=== PATIENT | male | born 1940 | race Caucasian/White ===

== ENCOUNTER 2016-06-09 14:31 | Inpatient (IN) | payer MEDICARE, BC ==
[~2016-06-09] VITALS: Ht 177.8 cm; Wt 88.5 kg
[2016-06-09] MEDS ORDERED: ADD HEIGHT/WEIGHT/ALLERGY INFO XX SCH (15:36)
[2016-06-09 15:44] VITALS: Ht 177.8 cm; Wt 88.5 kg
[2016-06-09 15:45] VITALS: BP_SYST 170; BP_SYST 178; RESP 18; TEMP 98.1
[2016-06-09] MEDS ORDERED: hePARIN 20,000 UNITS in DEXTROSE 5% 500 ML IV SCH (16:10)
[2016-06-09] MEDS ORDERED: HEPARIN 5,000 UNITS/ML **DVT/PE IV PRN (17:15)
[2016-06-09] MEDS: hePARIN in D5W (40 UNITS/ML) 500 ML IV SCH (18:33)
[2016-06-09 19:37] VITALS: BP_SYST 160; RESP 18; TEMP 98.3
[2016-06-09 23:10] VITALS: BP_SYST 170; RESP 18; TEMP 98.2
[2016-06-10 04:43] VITALS: BP_SYST 166; RESP 18; TEMP 97.4
[2016-06-10] MEDS ORDERED: MISSING DOSE XX ONE ×2 (06:55→19:05)
[2016-06-10 07:34] VITALS: BP_SYST 151; RESP 20; TEMP 97.9
[2016-06-10] MEDS: hePARIN in D5W (40 UNITS/ML) 500 ML IV SCH ×2 (07:41→22:37)
[2016-06-10] MEDS: amLODIPine 5 MG TAB PO SCH (09:26)
[2016-06-10 10:51] VITALS: BP_SYST 151; RESP 18; TEMP 97.9
[2016-06-10] MEDS ORDERED: ACETAMINOPHEN 325 MG TAB PO PRN (12:00)
[2016-06-10 16:07] VITALS: BP_SYST 165; RESP 20; TEMP 98.1
[2016-06-10 19:44] VITALS: BP_SYST 145; RESP 18; TEMP 97.9
[2016-06-10 23:05] VITALS: BP_SYST 152; TEMP 98.2
[2016-06-11 04:20] VITALS: BP_SYST 159; RESP 18; TEMP 97.7
[2016-06-11 07:11] VITALS: BP_SYST 166; RESP 18; TEMP 97.7
[2016-06-11] MEDS: amLODIPine 5 MG TAB PO SCH (08:00)
[2016-06-11] MEDS ORDERED: APIXABAN 5 MG TAB PO ONE (10:00)
[2016-06-11 10:40] VITALS: BP_SYST 149; RESP 18; TEMP 98.3
[2016-06-11 10:53] VITALS: BP_SYST 166; RESP 18; TEMP 97.7
[2016-06-11 10:58] VITALS: BP_SYST 166; RESP 18; TEMP 97.7
== END 2016-06-11 11:36 | disposition home or self-care (01) | DRG 301 ==
LOC: ENRESERVTM → ENRESERVDT → 4NT 15:08 → ENPENDDIS 15:08
PROVIDERS: ADMIT Internal Medicine; ATTEND Internal Medicine
DX: I82.432 Acute embolism and thrombosis of left popliteal vein (principal); I82.412 Acute embolism and thrombosis of left femoral vein; K21.9 Gastro-esophageal reflux disease without esophagitis; E78.5 Hyperlipidemia, unspecified; I10 Essential (primary) hypertension; E55.9 Vitamin D deficiency, unspecified; Z85.46 Personal history of malignant neoplasm of prostate
CPT/HCPCS: 71010; 80053; 84153; 84443; 85025; 85610; 85652; 85730; 93005; 93971